=== PATIENT | male | born 1980 | race American Indian/Alaskan Native ===

== ENCOUNTER 2019-02-15 14:06 | Emergency (ER) | payer OTHER ==
[2019-02-15 15:05] VITALS: BP 148/94
--- NOTE | 2019-02-15 16:23 | Emergency Department Report ---
ED Extremity Problem HPI - General Chief complaint: Extremity Injury, Upper Stated complaint: LFT FINGER INFECTED Time Seen by Provider: 02/15/19 15:58 Source: patient Mode of arrival: Ambulatory Limitations: No Limitations - History of Present Illness Initial comments: She is a 38-year-old -[place] male who states that 4 days ago he pulled a hangnail from his left thumb and he's had some swelling and pain since. Patient states pain is a 6 out of 10 throbbing and aching. Says some swelling to the side of the thumb going around to the pad of the thumb. Patient denies any fevers chills nausea vomiting. He states is been no purulent drainage from the site where he pulled the nail. Severity scale (0 -10): 4 - Related Data Previous Rx's Medication Instructions Recorded Last Taken Type Clindamycin [Clindamycin CAP] 300 mg PO Q8H #21 cap 02/15/19 Unknown Rx Ibuprofen [Ibu] 800 mg PO Q8H PRN #20 tablet 02/15/19 Unknown Rx traMADol [Ultram] 50 mg PO Q6HR PRN #12 tablet 02/15/19 Unknown Rx Allergies Allergy/AdvReac Type Severity Reaction Status Date / Time No Known Allergies Allergy Verified 02/15/19 15:03 ED Review of Systems ROS: Stated complaint: LFT FINGER INFECTED Other details as noted in HPI Comment: All other systems reviewed and negative ED Past Medical Hx - Past Medical History Previous Medical History?: No - Surgical History Past Surgical History?: No - Social History Smoking Status: Never Smoker Substance Use Type: None - Medications Home Medications: Home Medications Medication Instructions Recorded Confirmed Last Taken Type Clindamycin [Clindamycin CAP] 300 mg PO Q8H #21 cap 02/15/19 Unknown Rx Ibuprofen [Ibu] 800 mg PO Q8H PRN #20 tablet 02/15/19 Unknown Rx traMADol [Ultram] 50 mg PO Q6HR PRN #12 tablet 02/15/19 Unknown Rx ED Physical Exam - General Limitations: No Limitations General appearance: alert, in no apparent distress - Head Head exam: Present: atraumatic, normocephalic - Eye Eye exam: Present: normal appearance, PERRL, EOMI - ENT ENT exam: Present: mucous membranes moist - Neck Neck exam: Present: normal inspection - Rectal Rectal exam: Present: deferred - Extremities Exam Extremities exam: Present: normal inspection - Expanded Upper Extremity Exam Left Hand L/R Back: 1 - Mild erythema and induration consistent with early paronychia - Back Exam Back exam: Present: normal inspection - Neurological Exam Neurological exam: Present: alert, oriented X3 - Psychiatric Psychiatric exam: Present: normal affect, normal mood - Skin Skin exam: Present: warm, dry, intact, normal color. Absent: rash ED Course Vital Signs 02/15/19 15:03 Temperature 98.6 F Pulse Rate 71 Respiratory 18 Rate Blood Pressure 148/94 [Right] O2 Sat by Pulse 98 Oximetry ED Medical Decision Making - Medical Decision Making Patient be started on antibiotics at this time. Incision and drainage does not appear to be needed at this time. Critical care attestation.: If time is entered above; I have spent that time in minutes in the direct care of this critically ill patient, excluding procedure time. ED Disposition Clinical Impression: Paronychia Disposition: DC-01 TO HOME OR SELFCARE Is pt being admited?: No Does the pt Need Aspirin: No Condition: Stable Instructions: Jared (ED) Time of Disposition: 16:30
== END 2019-02-15 16:37 | disposition home or self-care (01) ==
LOC: ED 14:06
DX: L03.012 Cellulitis of left finger (principal)
CPT/HCPCS: 99282